=== PATIENT | male | born 1965 | race Caucasian/White ===

== ENCOUNTER 2024-06-02 08:28 | Day surgery (SDC) | payer OTHER, SELFPAY ==
[2024-05-17 10:47] VITALS: BMI 30.4
--- NOTE | 2024-05-17 10:55 | HPS.HSE ---
Family Physician
-
Family Physician: Clarissa Kent
Chief Complaint
-
Persistent atrial fibrillation.
History of Present Illness
The patient is a 58 year old male presenting today with persistent atrial fibrillation. The patient reports decreased exercise tolerance associated with this diagnosis. He previously underwent 2 cardioversions in August and October 2023 due to
his arrhythmia. Unfortunately, he had an early recurrence of atrial fibrillation within 3-4 days of each procedure. His arrhythmia is rate controlled without the use of current pharmacological therapy. He has been compliant with Eliquis for oral
anticoagulation. He is interested in pursuing pulmonary vein isolation for further arrhythmia management. He denies any current complaints today such as chest pain, shortness of breath at rest, nausea, vomiting, diarrhea, lightheadedness, dizziness,
cough, sore throat, or fever.
Medical History
Past Medical History
Past Medical History: Reports Other
Additional Past Medical History:
1. Persistent atrial fibrillation, status post cardioversion x2; no current pharmacological therapy, oral anticoagulation with Eliquis.
2. Hypertension.
3. Dyslipidemia.
4. Suspected obstructive sleep apnea, previous sleep study reportedly negative.
5. Obesity, BMI 30.3.
6. Alcohol use disorder, improved as of recent.
Past Surgical History: Reports Other
Additional Past Surgical History:
1. Cardioversion x2.
2. Appendectomy.
3. Tonsillectomy.
Social History
Tobacco: Non-smoker
Alcohol: Other (He reports to beer drinking on the weekends. )
Living: Other (He lives in a 2 story home. He reports his children live with him 50% of the time. )
Family History
Family History: Not pertinent
Allergies / Home Medications
Allergy/Medication List:
Home medications:
1. Apixaban 5 mg p.o. twice a day.
2. Fenofibrate 160 mg p.o. daily.
3. Fish oil 3 capsules p.o. daily.
4. Losartan 50 mg p.o. daily.
5. Multivitamin 1 tablet p.o. daily.
6. Rosuvastatin 5 mg p.o. daily.
Allergies: No known allergies.
Review of Systems
-
A 12 point ROS was completed and negative except as noted: Yes
Physical Exam
Vital Signs
Blood pressure 124/86. Heart rate 75. Respirations 18. Pulse ox 97% on room air.
Height 6 feet. Weight 101.5 kg. BMI 30.3.
Physical Exam
General: Well Developed, Well Nourished and No Apparent Distress
HEENT: NormoCephalic, Moist mucous membranes, Atraumatic and PERRLA
Respiratory: Clear
Cardiac: Irregular Rhythm
GI: Soft, Non Tender, Non Distended and Other (Obese. )
Musculoskeletal: No Edema and Normal Gait & Station
Skin: Warm, Dry and Rash
Neuro: AO x 3 and Nonfocal/grossly intact
Laboratory Results
-
DIAGNOSTIC STUDIES as of 05/17/2024: White blood cell count 5.9. Hemoglobin 14.9. Platelet count 273,000. PT 15.1. INR 1.16. Sodium 142. Potassium 4.4. BUN 23. Creatinine 1.2. Glucose 97. Calcium 10.3. Magnesium 2.1. AST 27. ALT 29. Albumin 5.0.
Type and screen A positive.
EKG 05/17/2024: Atrial fibrillation. Nonspecific T wave abnormality.
Chest CT 05/17/2024: Normal, conventional pulmonary venous anatomy. There is an ostial branch of the left inferior pulmonary vein, with a 7 mm diameter superior segment left lower lobe accessory pulmonary vein; the atriovenous junction is at the
superior margin of the inferior pulmonary vein. No left atrial filling defect/thrombus identified.
Impression/Plan
-
IMPRESSION/PLAN:
1. Persistent atrial fibrillation: The patient is in need of pulmonary vein isolation with Dr. Tay Salazar on 06/02/2024. The benefits and risks of the procedure have been explained to the patient. The patient understands these risks and wishes to
proceed. He will not be required to undergo a pre-procedural transesophageal echocardiogram as he has been compliant with his home oral anticoagulation. He is aware to continue his Eliquis uninterrupted prior to his procedure. He is aware to take no
medications the morning of his procedure.
[2024-05-17 11:17] LABS: % Basophils 0.7 % (0-2); % Eosinophils 2.4 % (0-6); % Immature Granulocytes 0.3 % (0-0.5); % Lymphocytes 37.7 % (20.5-51.1); % Monocytes 7.3 % (1.7-9.3); % Neutrophils 51.6 % (42.2-75.2); Absolute Eosinophils 0.1 10^3/uL (0-0.7); Absolute Lymphocytes 2.2 10^3/uL (1.2-3.4); Absolute Monocytes 0.4 10^3/uL (0.1-0.6); Hematocrit 43.5 % (39.0-52.0); Hemoglobin 14.9 g/dL (13.0-18.0); Mean Corp Hgb Conc. 34.3 g/dL (33.0-37.0); Mean Corpuscular Hgb 30.2 pg (27.0-31.0); Mean Corpuscular Volume 88.1 fL (80.0-94.0); Mean Platelet Volume 10.2 fL (7.4-10.4); Nucleated Red Blood Cells % 0 % (-); Platelet Count 273 10^3/uL (130-400); Red Blood Cell Count 4.94 10^6/uL (4.70-6.10); Red Cell Dist. Width 12.2 % (11.5-14.5); White Blood Cell Count 5.9 10^3/uL (4.8-10.8)
[2024-05-17 11:32] LABS: INR 1.16; PT 15.1 Sec (11.4-14.6)
[2024-05-17 11:33] LABS: ALT (SGPT) 29 U/L (0-50); AST (SGOT) 27 U/L (17-59); Alkaline Phosphatase 37 U/L (38-126); Blood Urea Nitrogen 23 mg/dl (9-20); Calcium 10.3 mg/dl (8.4-10.2); Carbon Dioxide 27 mmol/L (22-30); Chloride 103 mmol/L (98-107); Estimated Creatinine Clearance 84 ml/min; Glucose 97 mg/dl (70-99); Magnesium 2.1 mg/dl (1.6-2.3); Potassium 4.4 mmol/L (3.5-5.1); Sodium 142 mmol/L (135-145); Total Bilirubin 0.8 mg/dl (0.2-1.3); Total Protein 7.5 g/dl (6.3-8.2); eGFR > 60.00
[2024-06-02] VITALS (11 sets, daily range): BP systolic 98–130; BP diastolic 71–84; BMI 30.1
--- NOTE | 2024-06-02 11:08 | ITS.CL.ABL ---
[facility] - Ablation
Ablation
Procedure Report:
Primary Toolsmith: Ba Gaines MD
Procedure Date: 06/02/2024
Patient History:
Patient is a pleasant 58-year-old male with a past medical history significant for hypertension, dyslipidemia, obesity, alcohol use disorder, family history of coronary arthrosclerosis, symptomatic paroxysmal atrial fibrillation with early
recurrence.
See H&P for complete details.
Indication:
Symptomatic paroxysmal atrial fibrillation with early recurrence
Recurrence despite antiarrhythmic medical therapy
Arrhythmia Specific History:
Prior Medical Therapies for Rate and Rhythm Control:
[ ] Beta-gianni
[ ] Calcium channel-gianni
[ ] Amiodarone
[ ] Dronederone
[ ] Sotalol
X Flecainide
[ ] Dofetilide
X Options limited by bradycardia
[ ] Options limited by comorbid renal disease
Prior Procedural Therapies for AF/AFL:
X Cardioversion
[ ] Pulmonary Vein Isolation
[ ] Posterior Wall Isolation
[ ] Additional lines (Specify)
[ ] Surgical Fitch-MAZE or PVI (Specify)
Procedure Performed:
X AF ablation procedure (32742) -- includes LA/CS pacing, trans-septal, 3D mapping, + ICE
[ ] +IV drug (63878)
[ ] +Other Arrhythmia (29479)
X +Other AF Line/ablation (70161)
Risks and expected recovery has been explained in detail. Alternative options have been explored, and in a shared-decision making fashion we have decided that this was the most appropriate procedure.
Method
NPO status confirmed. Grounding pad applied. Defibrillator pads applied. Continuous surface ECG, pulse oximetry, and blood pressure were monitored. Procedure was performed under general anesthesia, with anesthesia services.
Both groins were clipped, prepped with Chloraprep, and draped in sterile fashion. Time out was called. Local anesthesia administered with bupivacaine. The right femoral vein was accessed for catheter placement, using ultrasound guidance,
micro-puncture needle/wire, and modified seldinger technique. 3 sheaths were placed. The following catheters were used:
[ ] Tacticath SE (D/F Curve) ablation catheter
X Viewflex 9Fr ICE catheter
X Inquiry decapolar 6Fr diagnostic catheter
[ ] CRD Hex 6Fr
[ ] Arctic Front Advance Cryoballoon ([ ]28mm[ ]23mm)
[ ] Achieve Advance mapping catheter ([ ]15mm[ ]20mm)
X FlexCath Contour 10 Fr with PulseSelect PFA Catheter
X Advisor HD Grid Mapping Catheter, SE
[ ] Acuson AcuNav 8 Fr ICE catheter
[ ]Other: [ ]
Intracardiac ultrasound (ICE) was carefully advanced into the right atrium to guide sheath placement over a J-wire, catheter placement, guide trans-septal puncture, identify potential complications, identify anatomic structures and ensure proper
contact between ablation catheter and tissue.
Heparin was given prior to trans-septal puncture. Heparin was given to achieve and maintain a target ACT of 300-400 seconds throughout the procedure.
Trans-septal access was performed under ICE guidance. The trans-septal puncture was performed with a SafeSept wire through a Brockenbrough needle assembly through the steerable sheath. The wire was visualized as it entered the LSPV and system
advanced under ICE guidance and fluoroscopy into the LA. The Brockenbrough needle assembly, SafeSept wire and sheath dilator were removed under negative pressure. LA pressure was measured and recorded.
ICE and 3D mapping was performed to identify relevant cardiac structures. A careful 3D map was created to assess for regions of low-voltage and abnormal electrogram signals using HD grid mapping catheter and PulseSelect catheter. Additional mapping
was performed as outlined below.
Prior to ablation, glycopyrrolate was provided. PulseSelect catheter was advanced over J-wire to the ostium of each vein. Pulmonary vein isolation was performed with ostial and antral lesions in a circumferential manner. Contact was visualized via
EAM, ICE, fluoroscopy, and EGM signals. Posterior wall isolation was performed by anchoring the J-wire within the pulmonary vein and placing the PulseSelect catheter in contact with the posterior wall as visualized by aforementioned methods.
Following completion of ablation lesions, sinus rhythm was restored with a 200J synchronized DCCV and a post-ablation voltage/activation map was performed in sinus rhythm. Entrance and exit block were confirmed for each vein and the posterior wall.
Catheter and sheath were removed from the left atrium and post-ablation intracardiac echo evaluation was consistent with pre-ablation with no changes and no pericardial effusion and there is no left atrial thrombus or left ventricle thrombus seen.
Electrophysiology study was performed. Hemostasis was obtained with Vascade for each sheath and with manual pressure. Protamine was used for reversal.
Estimated Blood Loss
5 mL
Complications
None
Fluoroscopy: 3.7 minutes; 10.83 mGy; DAP 1.41
Baseline Intervals:
Rhythm: AF
QRS: 106 ms
QT: 414 ms
QTc: 457 ms
Post-Procedure Intervals:
GA: 189 ms
QRS: 81 ms
QT: 393 ms
QTc: 393 ms
A-A: 1000 ms
R-R: 1000 ms
AVWB: 470 ms
AVNERP: 600/410 ms
AERP: 600/230 ms
Recommendations
- Bedrest with straight-leg precautions as ordered
- Anticipate same day discharge if patient meeting clinical metrics
- Resume home medications as indicated
- Ok to resume anticoagulation tonight if patient and groin sites stable
- PPI daily for 30 days
- Plan for follow-up in office in 2 weeks with EP MARELY; 3 mo with primary nanotechnology technician
Tay Salazar DO
Clinical Cardiac Telephone Worker
cc: Ba Gaines MD; Clarissa Kent MD
[2024-06-02 11:55] LABS: ACT-LR - POC 276 Seconds (116-155)
[2024-06-02 12:15] LABS: ACT-LR - POC 305 Seconds (116-155)
[2024-06-02 12:33] LABS: ACT-LR - POC 340 Seconds (116-155)
[2024-06-02 12:50] LABS: ACT-LR - POC 353 Seconds (116-155)
[2024-06-02 13:11] LABS: ACT-LR - POC 268 Seconds (116-155)
[2024-06-02] MEDS: ANESTHETIC LOZENGE 1 LOZENGE PO (14:37)
--- NOTE | 2024-06-02 15:09 | W.PN.UPDATE ---
Update Note
Progress Note Update
58 yo WM s/p PVI (same day). He denies cp, sob, mild sore throat, vikram clears, R fem groin VASCADE c/d/i no HT, soft, EKG SR. He will resume Eliquis after 7pm tonight. Activity restrictions reviewed. He will f/u EP HVAC LEAD in 2-4 weeks, then continue
cardiac care with Dr. Gaines. He is for d/c home after 4pm if groin stable and voiding.
== END 2024-06-02 16:00 | disposition home or self-care (01) ==
LOC: CATH 08:28
PROVIDERS: ATTENDING PHYSICIAN Internal Medicine Cardiovascular Disease; FAMILY PHYSICIAN Family Medicine; OTHER PHYSICIAN Internal Medicine Cardiovascular Disease
DX: I48.19 Other persistent atrial fibrillation (principal); I10 Essential (primary) hypertension; E78.5 Hyperlipidemia, unspecified; G47.33 Obstructive sleep apnea (adult) (pediatric); E66.9 Obesity, unspecified; Z68.30 Body mass index [BMI] 30.0-30.9, adult; F10.10 Alcohol abuse, uncomplicated; Z79.01 Long term (current) use of anticoagulants; Z79.899 Other long term (current) drug therapy
CPT/HCPCS: C1732; C1894; C1730; C1769; C1733; C1766; 36415; 75572; 80053; 83735; 85025; 85347; 85610; 86850; 86900; 86901; 93005; 93656; 93657; C1760; Q9967